=== PATIENT | female | born 1975 | race Two or more races ===

== ENCOUNTER 2025-05-25 10:18 | Inpatient (IN) | payer OTHER ==
[~2025-05-25] VITALS: Ht 157.5 cm; Wt 61.2 kg
[~2025-05-25 10:18] MED LIST: AVAPRO300 MG PO; MOTRIN800 MG PO; ORPH100T PO; SYNTHROID125 MCG PO; [UNRECOGNIZED DRUG - OTHER] PO
--- NOTE | 2025-05-25 12:44 | NUR ---
PACIENTE FEMINA, C/C [place] RECTAL, SE UBICA EN OBSERVACION EN ESPERA SER EVALUADA.
[2025-05-25] MEDS ORDERED: 0.9 % SODIUM CHLORIDE 1,000 ML IV SCH (13:45)
[2025-05-25] MEDS ORDERED: PANTOPRAZOLE SODIUM 40 MG/VIAL VIAL IV ONE (13:45)
--- NOTE | 2025-05-25 15:49 | NUR ---
PACIENTE ALERTA Y ORIENTADA SE EDUCA SOBRE TRATAMIENTO A SEGUIR, LA MISMA REFIERE ENTENDER. SE LE HACE BOLIVAR DE MUESTRAS, ADMINISTRACION DE MEDICAMENTOS Y SE COMIENZA ACCESO VENOSO CON MEDIDAS ASEPTICAS. SE LE HACE ENTREGA DE ENVACE PARA COLECTAR U/A Y OCCULT BLOOD.
[2025-05-25 15:57] LABS: BASO % 0.2 % (0.1-1.2); EOS # 0.03 (0.04-0.54); EOS % 0.2 % (0.7-7.0); LYMPH # 2.02 (1.18-3.74); LYMPH % 16.0 % (19.3-53.1); MEAN PLATELET VOLUME 10.40 fl (9.4-12.4); MONO # 0.75 (0.24-0.82); MONO % 5.9 % (4.7-12.5); NEUT # 9.76 (1.56-6.13); NEUT % 77.1 % (34.0-71.1); RED CELL DISTRIBUTION WIDTH 12.9 % (11.6-14.4)
--- NOTE | 2025-05-25 16:12 | NUR ---
PACIENTE SE TRASLADA Y SE CONECTA A MONITOR CONTINUO.
[2025-05-25 16:19] LABS: INR 1.18
[2025-05-25 16:28] LABS: ALT/SGPT 34.0 U/L (12-78); AST/SGOT 13.0 U/L (15-37); BILIRUBIN TOTAL 0.5 mg/dL (0.3-1.2); BUN CREA RATIO 33.0 (7.0-25.0); CREATININE SERUM 0.46 mg/dL (0.55-1.02); GFR 143.79; GLOBULINA 2.8 G/DL (2.4-3.5); GLUCOSE FASTING 99.0 mg/dL (65-100); OSMOLALITY SERUM 280.0 MOSM/KG (275-295)
[2025-05-25 17:36] LABS: URINE APPEARANCE Clear; URINE BILIRRUBIN Negative (NEGATIVE); URINE BLOOD Negative; URINE COLOR Yellow; URINE GLUCOSE Negative (NEGATIVE); URINE KETONE 15 (NEGATIVE); URINE LEUKOCYTE Negative; URINE NITRATE Negative; URINE PROTEIN Negative (NEGATIVE); URINE UROBILINOGEN 0.2 E.U./dl
[2025-05-25 17:42] LABS: URINE BACTERIA 152.1 uL (0.0-1933); URINE EPITHELIAL CELLS 4.5 uL (0.0-38.8); URINE WBC 2.2 uL (0.0-23.2)
[2025-05-25 17:46] LABS: URINE CAST 0.00 uL (0.0-1.40); URINE RBC 1.1 uL (0.0-20.8)
[2025-05-25] MEDS ORDERED: FAMOTIDINE/PF 20 MG in 0.9 % SODIUM CHLORIDE 100 ML IV SCH (20:59)
[2025-05-25] MEDS ORDERED: MORPHINE SULFATE 2 MG/ML SYRINGE IV PRN (21:15)
[2025-05-26] MEDS ORDERED: MORPHINE SULFATE 4 MG/ML VIAL IV PRN (05:19)
[2025-05-26] MEDS ORDERED: ONDANSETRON HCL 2 MG/ML VIAL IV PRN (05:30)
[2025-05-26 07:11] LABS: INR 1.09
[2025-05-26 07:40] LABS: ALT/SGPT 26 U/L (12-78); AST/SGOT 8 U/L (15-37); BILIRUBIN TOTAL 0.74 mg/dL (0.3-1.2); BUN CREA RATIO 25 (7.0-25.0); CREATININE SERUM 0.48 mg/dL (0.55-1.02); GFR 136.90; GLOBULINA 2.6 G/DL (2.4-3.5); GLUCOSE FASTING 79 mg/dL (65-100); OSMOLALITY SERUM 284 MOSM/KG (275-295)
[2025-05-26] MEDS ORDERED: LACTOBACILLUS ACIDOPHILUS 1 CAP CAP PO SCH ×2 (09:00→17:00)
[2025-05-26] MEDS ORDERED: IRON FUM,PS/FOLIC ACID/VITC/B3 1 CAP CAPSULE PO SCH (09:00)
[2025-05-26] MEDS ORDERED: POLYETHYLENE GLYCOL 3350 17 GM BLIST.PACK PO SCH (09:00)
[2025-05-26 09:30] VITALS: BP 106/67; O2SAT 100
[2025-05-26] MEDS ORDERED: CIPROFLOXACIN IN 5 % DEXTROSE 400 MG/200 ML PIGGYBAG IV SCH (17:00)
[2025-05-26 18:48] VITALS: BP 115/75; O2SAT 98
[2025-05-26 19:26] LABS: ob POSITIVE (NEGATIVE)
[2025-05-27 02:42] VITALS: BP 101/61; O2SAT 98
[2025-05-27 06:21] LABS: BASO % 0.2 % (0.1-1.2); EOS # 0.07 (0.04-0.54); EOS % 0.6 % (0.7-7.0); LYMPH # 2.38 (1.18-3.74); LYMPH % 19.5 % (19.3-53.1); MEAN PLATELET VOLUME 10.20 fl (9.4-12.4); MONO # 0.68 (0.24-0.82); MONO % 5.6 % (4.7-12.5); NEUT # 9.02 (1.56-6.13); NEUT % 73.8 % (34.0-71.1); RED CELL DISTRIBUTION WIDTH 12.8 % (11.6-14.4)
[2025-05-27 06:59] LABS: ALT/SGPT 28 U/L (12-78); AST/SGOT 9 U/L (15-37); BILIRUBIN TOTAL 0.60 mg/dL (0.3-1.2); BUN CREA RATIO 22 (7.0-25.0); CREATININE SERUM 0.59 mg/dL (0.55-1.02); GFR 107.89; GLOBULINA 2.7 G/DL (2.4-3.5); GLUCOSE FASTING 104 mg/dL (65-100); OSMOLALITY SERUM 282 MOSM/KG (275-295)
[2025-05-27 08:53] VITALS: BP 112/71
[2025-05-27 12:03] LABS: BASO % 0.3 % (0.1-1.2); EOS # 0.06 (0.04-0.54); EOS % 0.5 % (0.7-7.0); LYMPH # 1.82 (1.18-3.74); LYMPH % 16.3 % (19.3-53.1); MEAN PLATELET VOLUME 10.40 fl (9.4-12.4); MONO # 0.47 (0.24-0.82); MONO % 4.2 % (4.7-12.5); NEUT # 8.70 (1.56-6.13); NEUT % 78.1 % (34.0-71.1); RED CELL DISTRIBUTION WIDTH 13.0 % (11.6-14.4)
== END 2025-05-27 15:46 | disposition home or self-care (01) | DRG 379 ==
LOC: ER 10:19 → MEDI 21:04
PROVIDERS: General Practice; Internal Medicine Infectious Disease; ADMIT Internal Medicine; ATTEND Internal Medicine
PROC: BW21ZZZ Computerized Tomography (CT Scan) of Abdomen and Pelvis (ICD-10-PCS; principal; 2025-05-25)
DX: K62.5 Hemorrhage of anus and rectum (principal)